=== PATIENT | female | born 1975 | race Caucasian/White ===

== ENCOUNTER 2017-06-27 08:34 | Day surgery (SDC) | payer BC ==
--- NOTE | 2017-06-27 08:04 | HP ---
DATE OF SURGERY: 06/27/2017 HISTORY OF PRESENT ILLNESS: The patient is a 41 year-old for a while but worse now feels like sensation there all the time now. Anti-reflux medication did not help much. Stopped coffee, wine, carbonated beverages. Upper esophagus feeling like a pill is stuck in her upper esophagus. PAST MEDICAL HISTORY: She denies any chronic illnesses. PAST SURGICAL HISTORY: section, hysterectomy. MEDICATIONS: She has been on an acid willem and Estradiol. ALLERGIES: NKDA. FAMILY HISTORY: Negative for esophageal cancer. SOCIAL HISTORY: No smoking. Reports social alcohol use denies abuse. REVIEW OF SYSTEMS: Twelve systems reviewed per admission assessment. No chest pain or palpitations other systems negative or noncontributory as above and per preadmission questionnaire. PHYSICAL EXAMINATION: GENERAL: No acute distress. HEENT: Sclerae nonicteric. NECK: No JVD. CHEST: Clear to auscultation. CVS: Regular rate and rhythm. ABDOMEN: Soft. No peritoneal signs. EXTREMITIES: No significant edema. NEURO: Alert, oriented, moving extremities symmetrically. No gross motor deficits noted. IMPRESSION: Dysphagia with increasing reflux. I feel the patient would benefit from upper endoscopy possible biopsy, possible dilatation. Risks and benefits explained in detail but not limited to. She was shown the risk sheet and explained the procedure in detail but not limited to bleeding or infection, risk of bowel injury or perforation possibly requiring open procedure, risk of missed or nondiagnosis or incomplete exam possibly requiring other studies. She also understands possibility dilatation may not improve her symptoms that she may need further work up and/or testing. She also understands if dilatation does improve sometimes that needs repeated again in the future. She understands all the above, will proceed with EGD, possible biopsy, possible dilatation as an outpatient.
[~2017-06-27 08:34] MED LIST: Lactated Ringers 1,000 ML IV SCH
[2017-06-27] MEDS ORDERED: Versed 2 MG/2 ML Injection IV ONE (08:35)
[2017-06-27] MEDS ORDERED: DIPRIVAN 200 MG/20 ML IV ONE (08:35)
[2017-06-27] MEDS ORDERED: Lactated Ringers 1,000 ML IV ONE (08:42)
[2017-06-27 11:09] VITALS: O2SAT 95
[2017-06-27 11:37] VITALS: BP 118/81; PULSE 64
--- NOTE | 2017-06-28 07:46 | OP ---
SURGERY DATE/TIME: 06/27/2017 1020 PREOPERATIVE DIAGNOSIS: Dysphagia. POSTOPERATIVE DIAGNOSES: 1) Symptomatic proximal esophageal narrowing without any signs of any mass lesion. 2) Mild erosive gastritis. PROCEDURES: 1) EGD with cold biopsy of the antrum to evaluate for Helicobacter pylori. 2) Cold biopsy distal esophagus to evaluate for very short segment of early distal gastroesophagitis versus early Hudson's. 3) Proximal esophageal dilatation (size 20 balloon dilator). SURGEON: Dr. Dinesh Amor. ANESTHESIA: MAC. ESTIMATED BLOOD LOSS: Minimal. INDICATIONS: As noted above. Risks and benefits explained in detail and not limited to and consent obtained. DESCRIPTION OF PROCEDURE AND FINDINGS: The patient is taken to the operating room. MAC anesthesia was introduced. After official time out and no disagreement with planned procedure, bite block positioned. Video gastroscope passed down the oropharynx. There as a proximal esophageal narrowing or spasm. The scope was able to be just passed down through this area down through the gastroesophageal junction about 38 cm. In the stomach the pylorus, junction of second and third portion of the duodenum on withdrawal of the scope proximal duodenum was grossly unremarkable. The scope pulled back in the stomach. She had some mild erosive gastritis with some very superficial linear erosion. A cold biopsy taken to evaluate for Helicobacter pylori. Good hemostasis noted. Otherwise on retroflex the gastroesophageal junction is fairly snug against the scope. There was no signs of any large hiatal hernia. The scope was pulled back to the distal esophagus where a very short segment of either very early inflammation versus normal variation of the gastroesophageal junction versus very early Hudson's. A cold biopsy is taken. Good hemostasis noted. Otherwise the scope pulled back up to the proximal esophageal narrowing this was carefully inspected a couple times through the area. There were no signs of any obvious mass lesions. Biopsies given she was having her symptoms here. It was felt this warranted balloon dilatation. The scope is passed back down in the stomach. Balloon catheter carefully inserted under direct vision in the stomach and then pulled back up to the proximal esophageal narrowing. It was then gradually inflated to first stage for about 45 seconds, second stage for about 45 seconds and final stage for 2 minutes. The balloon catheter is then decompressed and withdrawn. The scope much more easily passed through this area that had been dilated. There were no signs of any full thickness issues or injury. The scope passed back down in the stomach. The biopsy sites had good hemostasis. The scope was carefully withdrawn. Again, there were no signs of any full thickness issues secondary to balloon dilatation. The patient tolerated the procedure well. Findings discussed with the family out in the waiting area.
== END 2017-06-27 11:40 | disposition home or self-care (01) ==
LOC: SDC 08:34 → EDBD 08:34 → SDC 11:40
PROVIDERS: ATTEND Surgery
PROC: 0DB38ZX Excision of Lower Esophagus, Via Natural or Artificial Opening Endoscopic, Diagnostic (ICD-10-PCS; principal; 2017-06-27)
PROC: 0DB78ZX Excision of Stomach, Pylorus, Via Natural or Artificial Opening Endoscopic, Diagnostic (ICD-10-PCS; 2017-06-27)
PROC: 0D718ZZ Dilation of Upper Esophagus, Via Natural or Artificial Opening Endoscopic (ICD-10-PCS; 2017-06-27)
DX: R13.10 Dysphagia, unspecified (principal); K22.2 Esophageal obstruction; K29.00 Acute gastritis without bleeding
CPT/HCPCS: C1726; J2250; J2704